=== PATIENT | female | born 1980 | race American Indian/Alaskan Native ===

== ENCOUNTER 2018-06-28 05:08 | Inpatient (IN) | payer MEDICAID ==
[2018-06-28] MEDS ORDERED: LACTATED RINGERS 1,000 ML IV ONE (05:48)
[2018-06-28] MEDS ORDERED: MINERAL OIL PO PRN (06:30)
[2018-06-28] MEDS ORDERED: AMPICILLIN/NS 2 GM/100 ML 2 GM/100 ML BAG IV ONE (06:30)
[2018-06-28] MEDS ORDERED: BRETHINE SUB-Q PRN (06:30)
[2018-06-28] MEDS ORDERED: XYLOCAINE 2% INFILTRATI ONE (06:30)
[2018-06-28] MEDS ORDERED: LACTATED RINGERS 1,000 ML IV SCH (07:00)
--- NOTE | 2018-06-28 07:35 | History and Physical Report ---
History of Present Illness Date of examination: 06/28/18 Date of admission: 06/28/2018 Chief complaint: Labor History of present illness: 38 year old presents to L&D in labor. Patient denies leaking of fluid or vaginal bleeding. Patient reports active movement. Patient has received care at [facility] and records are available. LMP 09/28/2017. EDC 07/05/2018. significant for the following: late care, anemia ( supplemented with iron), UTI (GBS); + HSV 2 serology (patient refused suppression). labs are as follows: O+, antibody screen negative, rubella immune, RPR nonreactive, hepatitis B surface antigen negative, HIV negative, GBS positive, GC/CT negative, hemoglobin electrophoresis AA. Past History Past Medical History: no pertinent history Past Surgical History: no surgical history [facility] History: herpes (patient denies lesions or prodromal symptoms). denies: abnormal PAP smear, chlamydia, fibroids, gonorrhea, hepatitis B, hepatitis C, HIV, syphilis Family/Genetic History: none Social history: lives with family, full code. denies: smoking, alcohol abuse, prescription drug abuse, IV drug use - Obstetrical History Expected Date of Delivery: 07/05/18 Actual Gestation: 39 Week(s) 0 Day(s) : 5 Para: 4 Hx # Term Pregnancies: 5 Number of Pregnancies: 0 Spontaneous Abortions: 0 Induced : 0 Number of Living Children: 4 Medications and Allergies Allergies Allergy/AdvReac Type Severity Reaction Status Date / Time No Known Allergies Allergy Unverified 02/03/15 13:14 Home Medications Medication Instructions Recorded Confirmed Last Taken Type Docusate Sodium [Colace] 100 mg PO BID PRN #60 capsule 10/15/15 Unknown Rx Ferrous Sulfate [Feosol 325 MG tab] 325 mg PO BID #60 tablet 10/15/15 Unknown Rx Active Meds: Active Medications Ephedrine Sulfate (Ephedrine Sulfate) 10 mg IV Q2M PRN PRN Reason: Hypotension Fentanyl (Sublimaze) 100 mcg IV Q2H PRN PRN Reason: Labor Pain Lactated Ringer's (Lactated Ringers) 1,000 mls @ 125 mls/hr IV DIRECT KETTY Oxytocin/Sodium Chloride (Pitocin/Ns 20 Unit/1000ml Drip) 20 units in 1,000 mls @ 125 mls/hr IV DIRECT KETTY Ampicillin Sodium (Ampicillin/Ns 1 Gm/50 Ml) 1 gm in 50 mls @ 100 mls/hr IV Q4HR KETTY; Protocol Mineral Oil (Mineral Oil) 30 ml PO QHS PRN PRN Reason: Constipation Terbutaline Sulfate (Brethine) 0.25 mg SUB-Q ONCE PRN PRN Reason: Hyperstimulation/Hypertonicity Review of Systems All systems: negative (labor) - Vital Signs Vital signs: Vital Signs Temp Pulse Resp BP 98.2 F 90 18 113/64 06/28/18 05:27 06/28/18 05:27 06/28/18 05:06/28/18 05:27 Temp Pulse Resp BP Pulse Ox 98.2 F 83 18 113/64 100 06/28/18 05:06/28/18 07:06/28/18 05:06/28/18 05:06/28/18 07:27 - Physical Exam Abdomen: Positive: normal appearance, soft. Negative: distention, tenderness, guarding, rigidity Genitourinary (Female): Positive: normal external genitalia, normal perenium (no lesions seen on careful exam with bright light upon admission). Negative: perineal/vulvar lesions Vagina: Positive: normal moisture Uterus: Positive: enlarged (size=dates) Extremities: Positive: normal. Negative: tenderness, edema - Obstetrical FHR: category 1 Uterine Contraction Monitor Mode: External Cervical Dilatation: 3.5 Cervical Effacement Percentage: 90 station: -2 Uterine Contraction Pattern: Regular Uterine Contraction Intensity: Moderate Results Result Diagrams: 06/28/18 07:25 All other labs normal. Assessment and Plan A: at 39 weeks gestation. GBS positive. Labor. 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 has not been on suppression (d/t pt. refusal). P: Admit. GBS prophylaxis. Valtrex suppression of HSV. Epidural if desired.
[2018-06-28 07:41] LABS: Hematocrit 32.5 % (30.3-42.9); Hemoglobin 10.6 gm/dl (10.1-14.3); Mean Corpuscular HGB Conc 33 % (30-34); Mean Corpuscular Volume 88 fl (79-97); Platelet Count 213 K/mm3 (140-440); Red Cell Distribution Width 15.9 % (13.2-15.2)
[2018-06-28] MEDS: SUBLIMAZE IV PRN ×2 (08:19→11:25)
[2018-06-28] MEDS ORDERED: VALTREX PO SCH (08:30)
[2018-06-28] MEDS ORDERED: AMPICILLIN/NS 1 GM/50 ML 1 GM/50 ML BAG IV SCH (10:33)
[2018-06-28] MEDS ORDERED: PITOCin/NS 30 UNIT/500ML 30 UNITS/500 ML BAG IV SCH (12:00)
[2018-06-28] MEDS ORDERED: STADOL IV PRN (13:10)
[2018-06-28] MEDS ORDERED: CYTOTEC ONE (14:27)
[2018-06-28] MEDS ORDERED: CYTOTEC PR ONE (14:32)
[2018-06-28] MEDS: PITOCin/NS 20 UNIT/1000ML DRIP 20 UNITS/1,000 ML BAG IV SCH ×2 (14:34→15:36)
--- NOTE | 2018-06-28 14:52 | Procedure Note ---
OB Delivery Note - Delivery Date of Delivery: 06/28/18 (14:26) Surgeon: DAXA MOLINA (MARYSOL) Estimated blood loss: 200cc - Vaginal Delivery presentation: vertex Delivery position: OA Intrapartum events: none Delivery induction: none Delivery monitor: external FHT, external uterine Route of delivery: (14:26) Delivery placenta: spontaneous (14:34) Delivery cord: 3 umbilical vessels Episiotomy: none Delivery laceration: none Anesthesia: intravenous Delivery comments: of a vigorous term 6 lbs 15 oz male on 06/28/18 @ 14:26. Baby placed [id number] on maternal abdomen. After 3 mins, umbilical cord double-clamped by MARYSOL Molina and cut by the patient's mom. Cytotec 800mcg [place] administered. Spontaneous delivery of placenta, [place] presenting @ 14:34. Moderate lochia noted. Fundal massage and IV pitocin bolus initiated. Fundus F/ML/U-1 with light lochia. Placenta intact; was discarded. Perineum intact. Mom and baby in stable condition. - A at 1 minute: 8 (6 lbs 15 oz (3146 gm); 19.5 in) at 5 minutes: 9 Infant Gender: Male
[2018-06-28] MEDS ORDERED: LANSINOH TP PRN (14:54)
[2018-06-28] MEDS ORDERED: PHENERGAN PR PRN (14:54)
[2018-06-28] MEDS ORDERED: TUCKS PAD TP PRN (14:54)
[2018-06-28] MEDS ORDERED: DULCOLAX PR PRN (14:54)
[2018-06-28] MEDS ORDERED: NORCO 5/325 PO PRN (14:54)
[2018-06-28] MEDS ORDERED: PHENERGAN PO PRN (14:54)
[2018-06-28] MEDS ORDERED: MILK OF MAGNESIA PO PRN (14:54)
[2018-06-28] MEDS ORDERED: ZOFRAN IV PRN (14:54)
[2018-06-28] MEDS ORDERED: BENADRYL PO PRN (14:54)
[2018-06-28] MEDS ORDERED: TYLENOL PO PRN (14:54)
[2018-06-28] MEDS ORDERED: SODIUM CHLORIDE FLUSH SYRINGE 10 ML IV SCH (15:00)
[2018-06-28] MEDS ORDERED: IBUPROFEN PO SCH (16:00)
[2018-06-28] MEDS: IBUPROFEN PO SCH (21:36)
[2018-06-29] MEDS: IBUPROFEN PO SCH ×2 (03:37→10:18)
[2018-06-29 04:38] LABS: Hemoglobin 8.7 gm/dl (10.1-14.3)
[2018-06-29] MEDS ORDERED: PRENATAL VITAMIN PO SCH (10:00)
[2018-06-29] MEDS ORDERED: FEOSOL PO SCH (10:00)
--- NOTE | 2018-06-29 11:29 | Progress Note ---
Assessment and Plan A: PPD#1 s/p Asymptomatic Anemia Stable P: Routine PP orders Continue FeS04 and PNVs at home Discharge home today pending peds Subjective - Subjective Date of service: 06/29/18 Principal diagnosis: P)PD#1 s/p Interval history: See H&P and delivery note Patient reports: appetite normal, voiding normally, pain well controlled, flatus, ambulating normally [place]: doing well, nursing well Objective - Vital Signs Latest vital signs: Vital Signs Temp Pulse Resp BP BP Pulse Ox 06/29/18 07:30 98.2 F 77 18 99/57 06/29/18 04:00 98.7 F 62 18 110/63 06/29/18 00:00 98.7 F 71 18 101/62 06/28/18 19:30 99 F 88 16 99/46 06/28/18 17:15 98.9 F 63 18 103/42 96 06/28/18 16:44 64 106/53 06/28/18 16:28 74 97/53 06/28/18 16:21 64 105/60 06/28/18 16:20 98.8 F 16 06/28/18 16:13 73 105/59 06/28/18 16:10 67 98 06/28/18 16:05 67 100 06/28/18 16:00 71 100 06/28/18 15:58 71 108/58 06/28/18 15:55 69 100 06/28/18 15:50 69 100 06/28/18 15:48 69 90 06/28/18 15:45 77 90 06/28/18 15:43 77 114/66 06/28/18 15:40 71 79 L 06/28/18 15:35 75 100 06/28/18 15:30 75 100 06/28/18 15:28 71 111/58 06/28/18 15:25 72 98 06/28/18 15:23 68 93 06/28/18 15:20 75 100 06/28/18 15:17 77 85 06/28/18 15:13 72 101/58 91 06/28/18 15:11 89 57 L 06/28/18 15:08 87 97 06/28/18 15:05 82 61 L 06/28/18 15:03 91 H 100 06/28/18 15:01 79 111/53 06/28/18 14:58 96.4 F L 81 18 76 L 06/28/18 14:53 75 100 06/28/18 14:48 81 100 06/28/18 14:44 80 115/52 06/28/18 14:43 82 100 06/28/18 13:28 90 77 L 06/28/18 13:25 83 100 06/28/18 13:22 75 L 06/28/18 13:20 70 53 L 06/28/18 13:15 89 100 06/28/18 13:11 76 91 06/28/18 13:10 82 100 06/28/18 13:06 84 86 06/28/18 13:05 98 H 99 06/28/18 13:00 78 100 06/28/18 12:57 78 L 06/28/18 12:55 70 78 L 06/28/18 12:52 51 L 45 L 06/28/18 12:48 45 L 37 L 06/28/18 12:43 84 37 L 06/28/18 12:41 85 72 L 06/28/18 12:38 82 98 06/28/18 12:34 94 H 77 L 06/28/18 12:33 81 99 06/28/18 12:28 77 98 06/28/18 12:17 101 H 100 06/28/18 12:12 90 100 06/28/18 12:07 97 H 100 06/28/18 12:02 87 100 06/28/18 11:57 91 H 100 06/28/18 11:52 91 H 100 06/28/18 11:47 80 100 06/28/18 11:42 102 H 99 06/28/18 11:37 91 H 99 06/28/18 11:32 89 98 Intake and Output 06/28/18 06/29/18 06/29/18 23:59 07:59 15:59 Intake Total 300 840 Output Total 300 1100 Balance 0 -260 Intake: Oral 840 Intake, Free Water 300 Output: Urine 300 1100 Void 300 1100 Other: Total, Intake Amount 240 Total, Output Amount 300 400 - Exam Breasts: Present: normal, Cardiovascular: Present: Regular rate, Normal S1, Normal S2, No murmurs Lungs: Present: Clear to auscultation, Normal air movement Abdomen: Present: normal appearance, soft, normal bowel sounds. Absent: distention Vulva: both: normal Uterus: Present: firm, fundal height below umbilicus (-1) Extremities: Present: normal Deep Tendon Reflex Grade: Normal +2 - Labs Labs: Abnormal lab results 06/29/18 Range/Units 03:05 Hgb 8.7 L (10.1-14.3) gm/dl Hct 26.0 L D (30.3-42.9) %
--- NOTE | 2018-06-29 11:31 | Discharge Summary ---
Providers - Providers Date of Admission: 06/28/18 07:50 Date of discharge: 06/29/18 Attending physician: DEJON RODRÍGUEZ MD Primary care physician: DEJON RODRÍGUEZ MD Hospitalization Reason for admission: active labor, IUP at term Delivery: Procedure details: See H&P and delivery note Episiotomy: none Laceration: none complications: none Discharge diagnosis: IUP at term delivered [place] baby: male Condition at discharge: Good Disposition: DC-01 TO HOME OR SELFCARE Plan - Provider Discharge Summary Activity: routine, no sex for 6 weeks, no heavy lifting 4 weeks, no strenuous exercise Diet: routine Instructions: routine Additional instructions: [] Smoking cessation referral if applicable(refer to patient education folder for contact #) [] Refer to [facility] Booklet Call your doctor immediately for: * Fever > 100.5 * Heavy vaginal bleeding ( >1 pad per hour) * Severe persistent headache * Shortness of breath * Reddened, hot, painful area to leg or breast * Drainage or odor from incision. * Keep incision clean and dry at all times and follow doctor's instructions regarding bathing/showering - Follow up plan Follow up: DEJON RODRÍGUEZ MD [Primary Care Provider] - 6 Weeks
[2018-06-29 16:57] VITALS: BP 99/61
== END 2018-06-29 19:00 | disposition home or self-care (01) | DRG 775 ==
LOC: TRG 05:08 → LD 07:50 → OB 17:35
PROVIDERS: ADMIT Obstetrics & Gynecology; ATTEND Obstetrics & Gynecology
PROC: 10E0XZZ Delivery of Products of Conception, External Approach (ICD-10-PCS; principal; 2018-06-28)
DX: O99.824 Streptococcus B carrier state complicating childbirth (principal); Z3A.39 39 weeks gestation of pregnancy; Z37.0 Single live birth; O99.02 Anemia complicating childbirth; D64.9 Anemia, unspecified
CPT/HCPCS: 36415; 85014; 85018; 85027; 86592; 86850; 86900; 86901; G0378; J0290; J0595; J2590; J3010; J7120

== ENCOUNTER 2021-01-21 16:03 | Emergency (ER) | payer MEDICAID | END 2021-01-21 18:00 | disposition left against medical advice (07) | LOC: ED 16:03 | DX: O26.891 Other specified pregnancy related conditions, first trimester (principal); Z3A.00 Weeks of gestation of pregnancy not specified; Z53.21 Procedure and treatment not carried out due to patient leaving prior to being seen by health care provider ==